=== PATIENT | female | born 1995 | race Caucasian/White ===

== ENCOUNTER 2016-11-28 18:23 | Outpatient (CLI) | payer BC ==
[2016-11-28 21:48] VITALS: BP 117/69; PULSE 94; RESP 16; TEMP 98.4
--- NOTE | 2017-01-22 21:43 | P.MSEPDOC ---
Presenting Problems - Arrival Data Date of Arrival on Unit: 11/28/16 Time of Arrival on Unit: 18:28 Mode of Transport: Wheelchair - Complaint OB-Reason for Admission/Chief Complaint: Pain Comment: c/o pelvic pain with movement 10/10 Medical History - Information : 1 Para: 0 Term: 0 : 0 Abortions: Spontaneous or Elective: 0 Number of Living Children: 0 - Gestational Age Gestational Age by BEAR (wks/days): 39 Weeks and 0 Days Review of Systems - Review of Systems Constitutional: No problems Breast: No problems ENT: No problems Cardiovascular: No problems Respiratory: No problems Gastrointestinal: No problems Genitourinary: No problems Musculoskeletal: No problems Neurological: No problems Skin: No problems Vital Signs - Temperature Temperature: 98.4 F Temperature Source: Oral - Pulse Right Pulse Oximetery Pulse Rate: 94 Pulse Assessment Method: Pulse Oximetry - Respirations Respiratory Rate: 16 Oxygen Delivery Method: Room Air - Blood Pressure Left Arm Blood Pressure: 117/69 Blood Pressure Mean: 85 Blood Pressure Source: Automatic Cuff Medical Screen Scoring (Pre) - Cervical Exam Dilation: 1-3 cm = 1 Effacement: More than 50% = 2 - Uterine Contractions Frequency: N/A - Maternal Vital Signs Maternal Temperature: N/A Signs of Preeclampsia: N/A Maternal Respirations: N/A - Maternal Trauma Maternal Trauma: N/A - Assessment Baseline FHR: 135 Heart Rate - NICHD Category: Category I (Normal) = 0 NST: Reactive Position: N/A - Total Score Total Score (Pre): 3 - Level of Risk Level of Risk: Low (0-5) Physician Notification (Pre) - Physician Notified Physician Notified Date: 11/28/16 Physician Notified Time: 19:40 Physician/Practitioner Notifed:: DR Merrill New Order Received: Yes (discharge) Medical Screen Scoring (Post) - Cervical Exam Dilation: 1-3 cm = 1 Effacement: More than 50% = 2 - Uterine Contractions Frequency: N/A - Total Score Total Score (Post): 3 Disposition - Disposition Discharge Date: 11/28/16 Discharge Time: 19:50 I agree with the RN Medical Screening Exam: No Physician's MSE Comment: incomplete documentation Risk & Benefit of care provided described in d/c instruction: No Diagnosis: FALSE LABOR, UNSPECIFIED
== END 2016-11-28 21:45 | disposition home or self-care (01) ==
LOC: FBPOP 18:23
PROVIDERS: ATTEND Obstetrics & Gynecology
DX: O47.9 False labor, unspecified (principal); Z3A.39 39 weeks gestation of pregnancy
CPT/HCPCS: 59025; 99213

== ENCOUNTER 2016-12-04 06:17 | Outpatient (CLI) | payer BC ==
[2016-12-04 08:20] VITALS: BP 125/79; PULSE 87; RESP 16; TEMP 98
--- NOTE | 2017-01-28 11:51 | P.MSEPDOC ---
Presenting Problems - Arrival Data Date of Arrival on Unit: 12/04/16 Time of Arrival on Unit: 06:17 Mode of Transport: Ambulatory - Complaint OB-Reason for Admission/Chief Complaint: Possible Onset of Labor Medical History - Information : 1 Para: 0 Term: 0 : 0 Abortions: Spontaneous or Elective: 0 Number of Living Children: 0 - Gestational Age Gestational Age by BEAR (wks/days): 39 Weeks and 6 Days Review of Systems - Review of Systems Constitutional: No problems Breast: No problems ENT: No problems Cardiovascular: No problems Respiratory: No problems Gastrointestinal: No problems Genitourinary: No problems Musculoskeletal: No problems Neurological: No problems Skin: No problems Vital Signs - Temperature Temperature: 98 F Temperature Source: Skin - Pulse Brachial Pulse Rate: 87 Pulse Assessment Method: Automatic Cuff - Respirations Respiratory Rate: 16 - Blood Pressure Right Arm Blood Pressure: 125/79 Blood Pressure Mean: 94 Blood Pressure Source: Automatic Cuff Medical Screen Scoring (Pre) - Cervical Exam Dilation: 4-7 cm = 2 Effacement: More than 50% = 2 Membranes: Intact - Uterine Contractions Frequency: > 5 minutes apart = 1 Duration: > 40 seconds = 2 Intensity: N/A - Maternal Vital Signs Maternal Temperature: N/A Maternal Blood Pressure: N/A Signs of Preeclampsia: N/A Maternal Respirations: N/A - Maternal Trauma Maternal Trauma: N/A - Assessment Baseline FHR: 140 Heart Rate - NICHD Category: Category I (Normal) = 0 - Total Score Total Score (Pre): 7 - Level of Risk Level of Risk: Medium (6-9) Physician Notification (Pre) - Physician Notified Physician Notified Date: 12/04/16 Physician Notified Time: 07:45 Physician/Practitioner Notifed:: Dr Wade Disposition - Disposition OB Disposition: Triage, Discharge to home, Written follow up instructions reviewed Discharge Date: 12/04/16 Discharge Time: 07:55 I agree with the RN Medical Screening Exam: Yes Risk & Benefit of care provided described in d/c instruction: Yes Diagnosis: ONSET LABOR 37-39 WEEKS, W DEL BY (PLANNED) SECTION
== END 2016-12-04 07:55 | disposition home or self-care (01) ==
LOC: FBPOP 06:17
PROVIDERS: ATTEND Obstetrics & Gynecology Obstetrics
DX: O75.82 Onset (spontaneous) of labor after 37 completed weeks of gestation but before 39 completed weeks gestation, with delivery by (planned) cesarean section (principal); Z3A.39 39 weeks gestation of pregnancy
CPT/HCPCS: 59025; 99213

== ENCOUNTER 2016-12-04 17:32 | Inpatient (IN) | payer BC ==
[2016-12-04] MEDS ORDERED: MORPHINE SULFATE 10 MG/ML SYRINGE IM STA (19:04)
[2016-12-04] MEDS ORDERED: MORPHINE SULFATE 10 MG/ML SYRINGE IVP STA (19:05)
[2016-12-04] MEDS: LACTATED RINGERS 1,000 ML IV SCH (19:40)
[2016-12-04] MEDS ORDERED: BUTORPHANOL 1 MG/ML 1 ML VIAL IV PRN (22:41)
[2016-12-04] MEDS ORDERED: OXYTOCIN 10 UNIT/ML 1 ML VIAL IM PRN (23:09)
[2016-12-04] MEDS ORDERED: CARBOPROST TROMETHAMINE 250 MCG/ML 1 ML AMP IM PRN (23:09)
[2016-12-04] MEDS ORDERED: METHYLERGONOVINE 0.2 MG/ML 1 ML AMP IM PRN (23:09)
[2016-12-04] MEDS ORDERED: LIDOCAINE 1% (PF) 10 MG/ML (30 ML SDV) SQ PRN (23:09)
[2016-12-04] MEDS ORDERED: TERBUTALINE 1 MG/ML VIAL SQ PRN (23:09)
[2016-12-04] MEDS ORDERED: OXYTOCIN 20 UNITS/1000 ML NS 1,000 ML IV SCH (23:15)
[2016-12-04 23:43] LABS: Anisocytosis Slight; Basophils % (A) 0 %; CH 23.1; CHCM 29.8; Eosinophils % (A) 0 %; HCT 28.9 % (34.0-46.0); HDW 3.77; HGB 8.8 gm/dL (11.4-16.0); Hypochromasia Marked; Luc % (Auto) 1; Lymphocytes # (A) 1.2 k/uL (1.0-4.8); Lymphocytes % (A) 13 %; MCH 23.7 pg (25.0-35.0); MCHC 30.5 g/dL (31.0-37.0); MCV 77.6 fL (80.0-100.0); Mean Platelet Volume 11.3; Microcytosis Slight; Monocytes # (A) 0.5 k/uL (0-1.0); Monocytes % (A) 6 %; Neutrophils # (A) 7.2 k/uL (1.3-7.7); Neutrophils % (A) 79 %; Poikilocytosis Slight; RBC 3.72 m/uL (3.80-5.40); RDW 16.5 % (11.5-15.5); WBC 9.1 k/uL (4.0-11.0); WBC (Perox) 9.67
[2016-12-05] MEDS: LACTATED RINGERS 1,000 ML IV SCH ×3 (00:51→10:13)
[2016-12-05] MEDS ORDERED: BUPIVACAINE (PF) 0.25% 30 ML VIAL ONE (01:07)
[2016-12-05] MEDS ORDERED: fentaNYL (PF) 50 MCG/ML 5 ML AMP ONE (01:07)
[2016-12-05] MEDS ORDERED: SODIUM CHLORIDE 0.9% 100 ML BAG ONE (01:07)
--- NOTE | 2016-12-05 06:28 | P.HPOB ---
History of Present Illness H&P Date: 12/05/16 Chief Complaint: IUP @ 40 0/7 weeks, contractions Malka is a 21-year-old 1 para 0 at 40-0/7 weeks. Estimated date of confinement 12/05/2016. She has been on OB a couple of times over the last few days complaining of contractions currently she is 5 cm dilated/80%/-2 station. Contractions are not graphing well initially on triage visit therefore a morphine rest was provided. She noted no relief and on further exam she was 6 cm therefore the decision was made to admit malka to OB for expectant management. She noted good movement and denied loss of fluid blood work showed a blood type of a positive, rubella immune, hepatitis B surface antigen negative, GBS negative. Review of Systems Constitutional: Reports fatigue Past Medical History Additional Past Medical History / Comment(s): kidney infection History of Any Multi-Drug Resistant Organisms: None Reported Past Surgical History: Appendectomy Past Anesthesia/Blood Transfusion Reactions: No Reported Reaction Past Psychological History: No Psychological Hx Reported Smoking Status: Never smoker Past Alcohol Use History: None Reported Past Drug Use History: None Reported - Past Family History Father History Unknown: Yes Family Medical History: No Reported History Medications and Allergies Home Medications Medication Instructions Recorded Confirmed Type Sud-Ohyo-Wtnbl Acid 1 mg PO DAILY 12/04/16 12/04/16 History [-U Capsule (formulary)] Allergies Allergy/AdvReac Type Severity Reaction Status Date / Time No Known Allergies Allergy Verified 12/04/16 17:47 Exam Osteopathic Statement: *. No significant issues noted on an osteopathic structural exam other than those noted in the History and Physical/Consult. - Vital Signs Vital signs: Vital Signs Temp Pulse Resp BP Pulse Ox 12/04/16 23:08 97.6 F 90 16 115/66 12/04/16 17:48 98.4 F 111 H 18 125/81 100 Intake and Output 12/04/16 12/04/16 12/05/16 14:59 22:59 06:59 Intake Total 1000 Balance 1000 Intake: IV 1000 Lactated Ringers 1,000 ml 1000 @ 125 mls/hr IV .Q8H RAOUL Rx#:[id number] Other: Weight 58.967 kg Patient Weight 12/05/16 06:59 Weight 58.967 kg - OBG Physical Exam Abdomen: Gravid and appropriate for gestational age Abdomen: bowel sounds normal Cervix: 6 cm/80%/-2 Uterus: enlarged Results Result Diagrams: 12/04/16 19:40 Abnormal Lab Results - Last 24 Hours (Table) 12/04/16 Range/Units 19:40 RBC 3.72 L (3.80-5.40) m/uL Hgb 8.8 L (11.4-16.0) gm/dL Hct 28.9 L (34.0-46.0) % MCV 77.6 L (80.0-100.0) fL MCH 23.7 L (25.0-35.0) pg MCHC 30.5 L (31.0-37.0) g/dL RDW 16.5 H (11.5-15.5) % Assessment and Plan (1) Term Narrative/Plan: Will admit for expectant management, anticipate spontaneous vaginal delivery. Status: Acute (2) Active labor at term Status: Acute
[2016-12-05] MEDS ORDERED: BUPIVACAINE (PF) 0.25% 25 ML, fentaNYL (PF) 200 MCG in SODIUM CHLORIDE 0.9% 71 ML EPIDURAL ONE (07:11)
[2016-12-05] MEDS ORDERED: diphenhydrAMINE 25 MG CAP PO PRN (09:19)
[2016-12-05] MEDS ORDERED: Acetaminophen-Codeine 300-30mg TAB PO PRN (09:19)
[2016-12-05] MEDS ORDERED: LANOLIN CREAM 5 GM TUBE TOPICAL PRN (09:19)
[2016-12-05] MEDS ORDERED: BENZOCAINE/MENTHOL SPRAY 1 GM/SPRAY AEROSOL TOPICAL PRN (09:19)
[2016-12-05] MEDS ORDERED: SIMETHICONE 80 MG CHEWABLE PO PRN (09:19)
[2016-12-05] MEDS ORDERED: WITCH HAZEL 1 EACH MED..PAD TOPICAL PRN (09:19)
[2016-12-05] MEDS ORDERED: diphenhydrAMINE 50 MG/ML 1 ML VIAL IVP PRN ×2 (09:19)
[2016-12-05] MEDS ORDERED: ACETAMINOPHEN TAB 325 MG TAB PO PRN (09:19)
[2016-12-05] MEDS ORDERED: diphenhydrAMINE 50 MG CAP PO PRN (09:19)
[2016-12-05] MEDS ORDERED: HYDROCORTISONE 2.5% RECTAL CREAM 30 GM TUBE RECTAL PRN (09:19)
[2016-12-05] MEDS ORDERED: ZOLPIDEM 5 MG TAB PO PRN (09:19)
--- NOTE | 2016-12-05 09:19 | P.PROBDLV ---
Vaginal Delivery Note - . Vaginal Delivery Note: This is a 21-year-old 1 para 001 that presented to labor and delivery last night with complaints of contractions. She was admitted to labor and delivery and progressed through labor eventually getting an epidural. She proceeded to push approximately an hour and a half, maternal exhaustion became apparent. Vacuum consent was obtained from mom and dad at that time. Risks were reviewed given the amount of discomfort she was in, no questions were asked at this time. The vacuum was placed after confirming an occiput anterior position at the time. Labial separation was noted prior to applying the vacuum, suction was confirmed to be in the green and appropriate zone prior to use, pressure was only applied with pushing. 3 attempts were made until a normal spontaneous vaginal delivery was achieved, over an intact perineum. No nuchal cord was noted. A normal amount of expected caput was noted at the time of delivery of this viable female infant at 846. Weight of 8 lbs. 0 oz. Apgars of 8 and 9 at one and 5 minutes respectively. The placenta was delivered spontaneously intact with a three-vessel cord. On vaginal inspection a second-degree midline vaginal laceration was noted this was repaired in the usual fashion. Hemostasis was noted after the repair. Rectal exam was performed and no rectal defects were noted. Estimated blood loss was noted to be approximately 300 mL at the end of this procedure. The bladder was emptied prior to the vaginal repair, approximately 125 mL of clear yellow urine. mom and tolerated delivery well specimen placenta
[2016-12-05] MEDS: IBUPROFEN 600 MG TAB PO PRN ×2 (10:08→19:29)
[2016-12-05] MEDS: Acetaminophen-Codeine 300-30mg TAB PO PRN ×2 (11:53→23:11)
[2016-12-05] MEDS: SENNOSIDES-DOCUSATE SODIUM 1 EACH TAB PO SCH (19:29)
[2016-12-06 07:02] LABS: Anisocytosis Slight; CHCM 29.9; Eosinophils # (A) 0.1 k/uL (0-0.7); Eosinophils % (A) 1 %; Hypochromasia Marked; Large Platelets Flag Slight; MCH 24.3 pg (25.0-35.0); Microcytosis Slight; Poikilocytosis Slight
[2016-12-06 07:04] LABS: Basophils % (A) 0 %; HDW 3.89; Luc # (Auto) 0.18; Luc % (Auto) 2; Lymphocytes # (A) 1.7 k/uL (1.0-4.8); Lymphocytes % (A) 17 %; MCHC 31.5 g/dL (31.0-37.0); MCV 77.2 fL (80.0-100.0); Mean Platelet Volume 10.9; Monocytes # (A) 0.5 k/uL (0-1.0); Monocytes % (A) 5 %; Neutrophils # (A) 7.6 k/uL (1.3-7.7); Neutrophils % (A) 76 %; RBC 2.98 m/uL (3.80-5.40); RDW 16.8 % (11.5-15.5); WBC (Perox) 10.38
[2016-12-06 07:05] LABS: HGB 7.2 gm/dL (11.4-16.0)
[2016-12-06 08:38] VITALS: BP 95/54; PULSE 76; RESP 16; TEMP 98.2
[2016-12-06] MEDS ORDERED: PRENATAL VIT-IRON-FOLIC ACID 1 EACH CAP PO SCH (09:00)
[2016-12-06] MEDS: IBUPROFEN 600 MG TAB PO PRN (09:38)
[2016-12-06] MEDS: SENNOSIDES-DOCUSATE SODIUM 1 EACH TAB PO SCH (09:39)
--- NOTE | 2016-12-06 11:19 | P.DS ---
Providers Date of admission: 12/04/16 22:48 Expected date of discharge: 12/06/16 Attending physician: Kailey Carrillo Primary care physician: Stated None Hospital Course: This is a 21-year-old white female 1 para 0 EDC 12/05/2016 at 39-6/7 weeks' gestation. Patient presented in active labor, essentially unremarkable. Her group B strep cultures were negative, blood type A positive, rubella status immune. Please see dictated history and physical for details. Patient went on to deliver a liveborn female with scores of 8 and 9 at one and 5 minutes respectively. 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 weight 8 lbs. 0 oz. or 3635 g. There was an estimated blood loss of 300 mL's. There was a small laceration judged to be second degree in depth, easily repaired with Vicryl suture. Please see dictated delivery note for details. Today the patient is doing well. She is voiding, ambulating, passing flatus without difficulty. Vital signs are stable and she is afebrile. Fundus is firm and in the midline, symmetric and 18 week size. Extremities are negative for edema. Perineal body is clean and dry. [place] infant is doing well. Breast-feeding is going well. Patient is being discharged home today in very good condition. She will follow- up with me in the office in 6 weeks. I have reminded her no intercourse, no tampons or douching. She will use rrhy-kas-dgzsecw products as needed for pain , Advil or Aleve as directed on the bottle, or Motrin products, 200 mg pills, 3 every 6 hours as needed for pain. She will continue taking her vitamin daily. She has a breast pump at home and breast-feeding at this point appears to be going well. I've asked her to call me with any fevers shakes or chills, foul smelling or copious lochia, with the passage of large blood clots, with any pain not alleviated by [id number]-[id number] products, or indeed with any concerns. Patient Condition at Discharge: Good Plan - Discharge Summary New Discharge Prescriptions: No Action Idv-Exxu-Qcdki Acid [-U Capsule (formulary)] 1 mg PO DAILY Discharge Medication List Ysl-Wvxh-Xebpx Acid [-U Capsule (formulary)] 1 mg PO DAILY 06/17 [History] Follow up Appointment(s)/Referral(s): Kailey Carrillo MD [STAFF PHYSICIAN] - 6 Weeks Discharge Disposition: HOME SELF-CARE
[2016-12-06] MEDS: Acetaminophen-Codeine 300-30mg TAB PO PRN (12:34)
== END 2016-12-06 12:30 | disposition home or self-care (01) | DRG 775 ==
LOC: FBPOP 17:32 → 4FBP 22:48
PROVIDERS: ADMIT Obstetrics & Gynecology Obstetrics; ATTEND Obstetrics & Gynecology
PROC: 10D07Z6 Extraction of Products of Conception, Vacuum, Via Natural or Artificial Opening (ICD-10-PCS; principal; 2016-12-05)
PROC: 0KQM0ZZ Repair Perineum Muscle, Open Approach (ICD-10-PCS; 2016-12-05)
DX: O75.81 Maternal exhaustion complicating labor and delivery (principal); Z37.0 Single live birth; O71.4 Obstetric high vaginal laceration alone; Z3A.39 39 weeks gestation of pregnancy
CPT/HCPCS: 59025; 85025; 88307; 96360; 96361; 96375; 99214

== ENCOUNTER → 2018-04-20 | Outpatient (CLI) | payer BC ==
--- NOTE | 2018-04-20 16:45 | US ---
EXAMINATION TYPE: US kidneys/renal and bladder DATE OF EXAM: 04/20/2018 COMPARISON: NONE CLINICAL HISTORY: M54.9 cva tenderness R10.9 right flank pain. Right flank pain for 2 weeks. Patient is 22 weeks EXAM MEASUREMENTS: Right Kidney: 12.7 x 6.2 x 6.3 cm Left Kidney: 11.6 x 4.7 x 4.8 cm Right Kidney: moderate hydronephrosis Left Kidney: no evidence of hydronephrosis Bladder: appears wnl Bilateral Jets seen: no IMPRESSION: 1. Moderate right hydronephrosis.
== END ==
LOC: RADUSWWP 14:17
PROVIDERS: ATTEND Obstetrics & Gynecology Obstetrics
DX: N13.30 Unspecified hydronephrosis (principal)
CPT/HCPCS: 76770

== ENCOUNTER 2018-08-10 08:45 | Inpatient (IN) | payer BC ==
[2018-08-10] MEDS ORDERED: METHYLERGONOVINE 0.2 MG/ML 1 ML AMP IM PRN (09:07)
[2018-08-10] MEDS ORDERED: AMPICILLIN 2,000 MG in SODIUM CHLORIDE 0.9% 100 ML IVPB STA (09:07)
[2018-08-10] MEDS ORDERED: OXYTOCIN 10 UNIT/ML 1 ML VIAL IM PRN (09:07)
[2018-08-10] MEDS ORDERED: LIDOCAINE 0.5% (PF) 5 MG/ML (50 ML SDV) SQ PRN (09:07)
[2018-08-10] MEDS ORDERED: CARBOPROST TROMETHAMINE 250 MCG/ML 1 ML AMP IM PRN (09:07)
[2018-08-10] MEDS ORDERED: TERBUTALINE 1 MG/ML VIAL SQ PRN (09:07)
--- NOTE | 2018-08-10 09:13 | P.HPOB ---
History of Present Illness H&P Date: 08/10/18 Chief Complaint: IUP @ 38 1/7 weeks, labor, GBS pos This is a pleasant 22-year-old 2 para 1001 at 38 and one sevenths weeks that presents to labor and delivery with complaints of regular painful contractions and bloody show. Patient states her contractions started around 3:30 this morning she denies loss of fluid and notes good movement. Patient has been receiving routine care with myself. Of note she did have a vacuum-assisted vaginal delivery of an 8 pound with her last delivery on her due date. On blood work she had a blood type of A+, rubella immune, RPR nonreactive, hepatitis B surface antigen negative, HIV negative, GBS was noted to be positive in her urine therefore we will treat during labor. She did pass her 1 hour GDS and received Tdap On 05/31/18. Review of Systems Constitutional: Denies chills, Denies fatigue, Denies fever Ears, nose, mouth and throat: Denies headache Cardiovascular: Denies leg edema Respiratory: Denies dyspnea Gastrointestinal: Denies constipation, Denies diarrhea, Denies nausea, Denies vomiting Genitourinary: Reports Past Medical History Additional Past Medical History / Comment(s): kidney infection History of Any Multi-Drug Resistant Organisms: None Reported Past Surgical History: Appendectomy Past Anesthesia/Blood Transfusion Reactions: No Reported Reaction Past Psychological History: No Psychological Hx Reported Smoking Status: Never smoker Past Alcohol Use History: None Reported Past Drug Use History: None Reported - Past Family History Father History Unknown: Yes Family Medical History: No Reported History Medications and Allergies Home Medications Medication Instructions Recorded Confirmed Type Nxd-Gons-Obgeo Acid 1 mg PO DAILY 12/04/16 12/04/16 History [-U Capsule (formulary)] Allergies Allergy/AdvReac Type Severity Reaction Status Date / Time No Known Allergies Allergy Verified 12/04/16 17:47 Exam Osteopathic Statement: *. No significant issues noted on an osteopathic structural exam other than those noted in the History and Physical/Consult. Targeted physical exam is performed on this date in general this a well- nourished well-developed female in no acute distress, and her breathing is noted to be nonlabored and her heart has a regular rate and rhythm her abdomen is noted to be gravid and appropriate for gestational age, on cervical exam she is 4/50/-3 with a bulging bag of water, heart tones are noted to be category 1 she is husam every 5 minutes. Assessment and Plan (1) Positive GBS test Current Visit: Yes Status: Acute Code(s): B95.1 - STREPTOCOCCUS, GROUP B, CAUSING DISEASES [facility] SNOMED Code(s): 745819386 (2) Active labor at term Current Visit: No Status: Acute Code(s): WHZ4292 - SNOMED Code(s): 08465216 Plan: We'll admit patient to labor and delivery, antibiotics given her GBS positive status, anticipate spontaneous vaginal delivery.
[2018-08-10] MEDS ORDERED: OXYTOCIN 30 UNITS/500 ML NS 30 UNIT in SALINE 1 500ML.BAG IV SCH (09:15)
[2018-08-10] MEDS: LACTATED RINGERS 1,000 ML IV SCH ×2 (09:30→10:28)
[2018-08-10 10:04] VITALS: BMI 24.0
[2018-08-10 10:32] LABS: Anisocytosis Slight; Basophils % (A) 0 %; Eosinophils % (A) 0 %; HCT 31.5 % (34.0-46.0); HGB 9.8 gm/dL (11.4-16.0); Hypochromasia Marked; Lymphocytes # (A) 1.2 k/uL (1.0-4.8); Lymphocytes % (A) 10 %; MCH 23.8 pg (25.0-35.0); MCV 76.7 fL (80.0-100.0); Mean Platelet Volume 10.2; Microcytosis Slight; Monocytes # (A) 0.6 k/uL (0-1.0); Monocytes % (A) 5 %; Neutrophils # (A) 10.2 k/uL (1.3-7.7); Neutrophils % (A) 84 %; Platelet Count 210 k/uL (150-450); Poikilocytosis Moderate; RBC 4.11 m/uL (3.80-5.40); RDW 16.1 % (11.5-15.5); WBC 12.1 k/uL (3.8-10.6)
[2018-08-10] MEDS ORDERED: ROPIVACAINE 5MG/ML 20ML VIAL ONE (10:48)
[2018-08-10] MEDS ORDERED: SODIUM CHLORIDE 0.9% 100 ML BAG ONE (10:48)
[2018-08-10] MEDS ORDERED: fentaNYL (PF) 50 MCG/ML 5 ML AMP ONE (10:48)
[2018-08-10] MEDS: AMPICILLIN 1,000 MG in SODIUM CHLORIDE 0.9% 50 ML IVPB SCH ×2 (13:44→21:49)
[2018-08-10] MEDS ORDERED: SIMETHICONE 80 MG CHEWABLE PO PRN (14:19)
[2018-08-10] MEDS ORDERED: diphenhydrAMINE 50 MG/ML 1 ML VIAL IVP PRN ×2 (14:19)
[2018-08-10] MEDS ORDERED: diphenhydrAMINE 50 MG CAP PO PRN (14:19)
[2018-08-10] MEDS ORDERED: WITCH HAZEL 1 EACH MED..PAD TOPICAL PRN (14:19)
[2018-08-10] MEDS ORDERED: LANOLIN CREAM 5 GM TUBE TOPICAL PRN (14:19)
[2018-08-10] MEDS ORDERED: BENZOCAINE/MENTHOL SPRAY 1 GM/SPRAY AEROSOL TOPICAL PRN (14:19)
[2018-08-10] MEDS ORDERED: HYDROCORTISONE 2.5% RECTAL CREAM 30 GM TUBE RECTAL PRN (14:19)
[2018-08-10] MEDS ORDERED: ZOLPIDEM 5 MG TAB PO PRN (14:19)
[2018-08-10] MEDS ORDERED: diphenhydrAMINE 25 MG CAP PO PRN (14:19)
[2018-08-10] MEDS ORDERED: ACETAMINOPHEN TAB 325 MG TAB PO PRN (14:19)
--- NOTE | 2018-08-10 14:23 | P.PROBDLV ---
Vaginal Delivery Note - . Vaginal Delivery Note: This very pleasant 22-year-old 2 para 1001 presented to labor and delivery at 38 and one sevenths weeks with plate complaints of regular painful contractions. Patient was noted to be 4 cm and was admitted to labor and delivery. Patient was also noted to be GBS positive therefore antibiotics were started. Patient was husam regularly every 2-3 minutes uncomfortable requesting an epidural. Patient had epidural placed by anesthesia without difficulty. Patient's contractions were noted to space out therefore Pitocin augmentation of labor was begun and soon afterwards amniotomy was performed and clear fluid was obtained. Patient progressed to complete began pushing and had a normal spontaneous vaginal delivery of a viable female at 1406, weight of 7 lbs. 1 oz. with Apgars of 9 and 10 at one and 5 minutes respectively. After a two-minute delayed the umbilical cord was doubly clamped and cut and the placenta was delivered spontaneously intact with a three-vessel cord being noted. On inspection the patient's vaginal vault a first-degree vaginal laceration was noted this was repaired in the usual fashion with 3-0 Rapide. The uterus was then noted to be firm and below the umbilicus. Estimated blood loss for this delivery 200 mL. All counts are correct 2 patient and tolerated delivery well and are resting comfortably.
[2018-08-10] MEDS ORDERED: OXYTOCIN 20 UNITS/1000 ML NS 1,000 ML IV SCH (14:30)
[2018-08-10] MEDS: IBUPROFEN 600 MG TAB PO PRN (20:05)
[2018-08-10] MEDS: SENNOSIDES-DOCUSATE SODIUM 1 EACH TAB PO SCH (21:49)
[2018-08-11] MEDS: IBUPROFEN 600 MG TAB PO PRN ×2 (01:57→08:24)
--- NOTE | 2018-08-11 07:38 | P.DS ---
Providers Date of admission: 08/10/18 09:06 Expected date of discharge: 08/11/18 Attending physician: Natasha Wade Primary care physician: Stated None - Discharge Diagnosis(es) (1) Positive GBS test Current Visit: Yes Status: Acute (2) Active labor at term Current Visit: No Status: Acute (3) Normal spontaneous vaginal delivery Current Visit: Yes Status: Acute (4) Perineal laceration with delivery, first degree Current Visit: Yes Status: Acute Hospital Course: This is a 22-year-old 2 now para 2 woman who presented in spontaneous active labor at 38+ weeks gestation. She is group B strep positive. She was admitted and prophylactic group B strep antibiotics were initiated. She underwent artificial rupture of membranes. She went on to have an uncomplicated delivery of a liveborn over a first-degree perineal laceration weighing 7 lbs. 1 oz. The patient's course was entirely unremarkable. Her vital signs were stable, her lochia was minimal and she is breast-feeding successfully. She was therefore discharged home on day #1 with routine instructions for care and follow-up. Patient Condition at Discharge: Good Plan - Discharge Summary Discharge Rx Participant: No New Discharge Prescriptions: No Action Bqs-Dtcm-Pgegf Acid [-U Capsule (formulary)] 1 mg PO DAILY Discharge Medication List Pgj-Znxz-Cwrub Acid [-U Capsule (formulary)] 1 mg PO DAILY 12/04/16 [History]
[2018-08-11] MEDS: SENNOSIDES-DOCUSATE SODIUM 1 EACH TAB PO SCH (08:24)
[2018-08-11 09:06] VITALS: BP 111/69; PULSE 82; RESP 16; TEMP 98.2
== END 2018-08-11 15:12 | disposition home or self-care (01) | DRG 807 ==
LOC: FBPOP 08:45 → 4FBP 09:06
PROVIDERS: ADMIT Obstetrics & Gynecology Obstetrics; ATTEND Obstetrics & Gynecology Obstetrics
PROC: 10E0XZZ Delivery of Products of Conception, External Approach (ICD-10-PCS; principal; 2018-08-10)
PROC: 0HQ9XZZ Repair Perineum Skin, External Approach (ICD-10-PCS; 2018-08-10)
PROC: 00HU33Z Insertion of Infusion Device into Spinal Canal, Percutaneous Approach (ICD-10-PCS; 2018-08-10)
PROC: 3E0R3BZ Introduction of Anesthetic Agent into Spinal Canal, Percutaneous Approach (ICD-10-PCS; 2018-08-10)
DX: O99.824 Streptococcus B carrier state complicating childbirth (principal); Z37.0 Single live birth; O70.0 First degree perineal laceration during delivery; Z3A.38 38 weeks gestation of pregnancy; Z90.49 Acquired absence of other specified parts of digestive tract; Z87.440 Personal history of urinary (tract) infections
CPT/HCPCS: 85025; 86850; 86900; 86901

== ENCOUNTER → 2019-12-13 | Outpatient (CLI) | payer BC ==
--- NOTE | 2019-12-13 13:50 | US ---
EXAMINATION TYPE: US abdomen complete DATE OF EXAM: 12/13/2019 COMPARISON: CT 06/17/2015, ultrasound dated 04/20/2018 CLINICAL HISTORY: R10.9 ABD PAIN. right side pain EXAM MEASUREMENTS: Liver Length: 15.4 cm Gallbladder Wall: 0.1 cm CBD: 0.4 cm Spleen: 10.7 cm Right Kidney: 11.6 x 5.1 x 5.7 cm Left Kidney: 10.8 x 4.8 x 4.3 cm Pancreas: wnl Liver: wnl Gallbladder: wnl Evidence for sonographic Reza's sign: neg CBD: wnl Spleen: wnl Right Kidney: There is mild hydronephrosis Left Kidney: medial anechoic lesion at hilum is consistent with an extrarenal pelvis Upper IVC: wnl Abd Aorta: No AAA visualized There is no ascites. IMPRESSION: Mild right-sided hydronephrosis.
--- NOTE | 2019-12-13 13:53 | US ---
EXAMINATION TYPE: US pelvis complete transvag DATE OF EXAM: 12/13/2019 COMPARISON: CT 06/17/2015 CLINICAL HISTORY: R10.9 ABD PAIN. Left side pain. TECHNIQUE: Transvaginal (TV) and Transabdominal (TA) . Transabdominal sonographic images of the pel vis were acquired. Transvaginal sonographic images were medically necessary to better assess the fol lowing anatomy: Endometrium Date of LMP: 11/18/2019, EXAM MEASUREMENTS: Uterus: 7.6 x 5.1 x 4.6 cm Endometrial Stripe: 0.8 cm Right Ovary: 3.2 x 1.9 x 1.7 cm Left Ovary: 5.6 x 3.8 x 3.0 cm 1. Uterus: Retroverted wnl 2. Endometrium: wnl 3. Right Ovary: follicles seen 4. Left Ovary: There is an mixed anechoic focus with some internal echoes associated with the ovary measuring = 4.6 x 3.1 x 2.8 cm 5. Bilateral Adnexa: wnl 6. Posterior cul-de-sac: fluid seen at fundal region Cervix- wnl IMPRESSION: Findings could be indicative of hemorrhagic cyst associated with the left kidney, conside r follow-up
== END | disposition home or self-care (01) ==
LOC: RADUSWWP 12:49
PROVIDERS: ATTEND Internal Medicine
DX: N13.30 Unspecified hydronephrosis (principal)
CPT/HCPCS: 76700; 76830; 76856